=== PATIENT | male | born 1990 | race African-American/Black ===

== ENCOUNTER 2016-11-27 13:59 | Observation (INO) | payer BC ==
[~2016-11-27] VITALS: Ht 188 cm; Wt 100.0 kg
[2016-11-27 14:01] VITALS: BP 153/92; PULSE 85; RESP 17; TEMP 97.7; O2SAT 97
--- NOTE | 2016-11-27 14:22 | PD ---
Physical Exam Time Seen by Provider: 14:19 Narrative 26yo M, w/ hx of PE/DVT, c/o SOB and chest pain x 1 week w/ worsening this morning. States he has Protein S deficiency. Restarted Xarelto 3 days ago; had not taken it since April. Patient seen in triage. VS reviewed. Patient awaiting bed placement. Data Data Last Documented VS Vital Signs Date Time Temp Pulse Resp B/P Pulse Ox O2 Delivery O2 Flow Rate FiO2 11/27/16 14:01 97.7 85 17 153/92 97 Orders Electrocardiogram (11/27/16 14:20) Complete Blood Count With Diff (11/27/16 14:20) Basic Metabolic Panel (Bmp) (11/27/16 14:20) Ckmb (Isoenzyme) Profile (11/27/16 14:20) Troponin I (11/27/16 14:20) Chest, Single Ap (11/27/16 14:20) Iv Access Insert/Monitor (11/27/16 14:20) Ecg Monitoring (11/27/16 14:20) Oxygen Administration (11/27/16 14:20) Oximetry (11/27/16 14:20) D-Dimer (11/27/16 14:20) MDM Supervised Visit with ATIF: Collette Bear Nov 27, 2016 14:22
[2016-11-27 15:39] LABS: AUTOMATED NEUTROPHIL # 4.3 TH/MM3 (1.8-7.7); BASOPHIL # 0.1 TH/MM3 (0-0.2); BASOPHIL % 0.8 % (0.0-2.0); EOSINOPHIL # 0.3 TH/MM3 (0-0.4); EOSINOPHIL % 3.9 % (0.0-4.0); HEMATOCRIT 43.8 % (39.0-51.0); HEMO FLAGS DIFF FINAL; LYMPH % 25.8 % (9.0-44.0); LYMPHOCYTE # 1.9 TH/MM3 (1.0-4.8); MEAN CELL VOLUME 86.9 FL (80.0-100.0); MEAN CORPUSCULAR HEMOGLOBIN 28.4 PG (27.0-34.0); MEAN CORPUSCULAR HGB CONC 32.7 % (32.0-36.0); MONO % 11.9 % (0.0-8.0); NEUT % 57.6 % (16.0-70.0); PLATELET COUNT 153 TH/MM3 (150-450); RED BLOOD COUNT 5.05 MIL/MM3 (4.50-5.90); RED CELL DISTRIBUTION WIDTH 14.6 % (11.6-17.2); WHITE BLOOD COUNT 7.5 TH/MM3 (4.0-11.0)
[2016-11-27 15:57] LABS: ANION GAP 7 MEQ/L (5-15); BICARBONATE 30.8 MEQ/L (21.0-32.0); BLOOD UREA NITROGEN 14 MG/DL (7-18); CHLORIDE 102 MEQ/L (98-107); GLOMERULAR FILTRATION RATE 82 ML/MIN (>89); POTASSIUM 3.8 MEQ/L (3.5-5.1); SODIUM (NA) 140 MEQ/L (136-145)
--- NOTE | 2016-11-27 16:03 | RADRPT ---
EXAM DATE/TIME: 11/27/2016 15:51 [facility] COMPARISON: No previous studies available for comparison. INDICATIONS : Chest pain, short of breath. MEDICAL HISTORY : s deficiency, 2 PEs SURGICAL HISTORY : None. ENCOUNTER: Initial ACUITY: 1 week PAIN SCORE: 7/10 LOCATION: Bilateral chest FINDINGS: PA and lateral views of the chest demonstrate a normal-sized cardiac silhouette. There is no effusion , consolidation, or pneumothorax. The bones and soft tissues demonstrate no acute abnormality. CONCLUSION: Normal chest x-ray. J Luis Blunt MD on November 27, 2016 at 16:00 Board Certified Radiologist. This report was verified electronically.
[2016-11-27 16:10] LABS: CREATINE KINASE 1069 U/L (39-308)
[2016-11-27 16:23] LABS: CKMB 2.3 NG/ML (0.5-3.6)
[2016-11-27] MEDS ORDERED: XARE20TA PO (19:08)
--- NOTE | 2016-11-27 19:24 | PD ---
HPI Chief Complaint: Cardiac Complaint Time Seen by Provider: 19:19 Travel History International Travel<30 days: No Contact w/Intl Traveler<30days: No Traveled to known affect area: No History of Present Illness HPI 26-year-old male presents to the emergency department for evaluation of right- sided chest pain that started approximately one week ago. He does state it is worse with deep breathing as well as coughing and movement. Patient reports history of PE and DVT due to protein S deficiency. He states that he has been off his Xarelto since April up until 3 days ago when he resumed his Xarelto. He states that he recently got insurance and now can afford it. The patient denies any fevers or chills. No abdominal pain. No nausea, vomiting, diarrhea. He states that every time he has had a PE, he has also had a DVT. He denies any leg pain at this time. Patient denies any cardiac history. PFSH Past Medical History Hx Anticoagulant Therapy: Yes (XARELTO) Deep Vein Thrombosis: Yes (RT MID CALF/LEFT MORE TWARDS KNEE) Musculoskeletal: Yes (6 SCREWS IN ANKLE) Reproductive: Yes (PE IN ONE LUNG) Tetanus Vaccination: > 5 Years Influenza Vaccination: No ?: Not Social History Alcohol Use: Yes Tobacco Use: Yes (PIPE TOBACCO) Substance Use: No Allergies-Medications (Allergen,Severity, Reaction): Coded Allergies: No Known Allergies (Unverified , 08/21/12) Reported Meds & Prescriptions Reported Meds & Active Scripts Active Reported Xarelto (Rivaroxaban) 20 Mg Tab 20 Mg PO DAILYHS [None] Review of Systems Except as stated in HPI: all other systems reviewed are Neg Physical Exam Narrative GENERAL: Well-nourished, well-developed male patient, ambulatory. Afebrile. SKIN: Focused skin assessment warm/dry. HEAD: Normocephalic. Atraumatic. EYES: No scleral icterus. No injection or drainage. NECK: Supple, trachea midline. No JVD or lymphadenopathy. CARDIOVASCULAR: Regular rate and rhythm without murmurs, gallops, or rubs. RESPIRATORY: Breath sounds equal bilaterally. No accessory muscle use. Lungs sounds are clear to auscultation. GASTROINTESTINAL: Abdomen soft, non-tender, nondistended. MUSCULOSKELETAL: No cyanosis, or edema. BACK: Nontender without obvious deformity. No CVA tenderness. Data Data Last Documented VS Vital Signs Date Time Temp Pulse Resp B/P Pulse Ox O2 Delivery O2 Flow Rate FiO2 11/27/16 19:52 Room Air 11/27/16 14:01 97.7 85 17 153/92 97 Orders Electrocardiogram (11/27/16 14:20) Complete Blood Count With Diff (11/27/16 14:20) Basic Metabolic Panel (Bmp) (11/27/16 14:20) Ckmb (Isoenzyme) Profile (11/27/16 14:20) Troponin I (11/27/16 14:20) Iv Access Insert/Monitor (11/27/16 14:20) Ecg Monitoring (11/27/16 14:20) Oxygen Administration (11/27/16 14:20) Oximetry (11/27/16 14:20) D-Dimer (11/27/16 14:20) Chest, Pa & Lat (11/27/16 14:20) CKMB (11/27/16 15:15) CKMB% (11/27/16 15:15) Us Leg Venous Doppler Bilat (11/27/16 ) Sodium Chlor 0.9% 1000 Ml Inj (Ns 1000 M (11/27/16 19:30) Ventilation & Perfusion Scan (11/27/16 20:59) Heparin Inj (Heparin Inj) (11/27/16 22:45) Heparin Inj (Heparin Inj) (11/28/16 04:45) Heparin Inj (Heparin Inj) (11/28/16 04:45) Heparin-D5w Inj (Heparin-D5w Inj) (11/27/16 22:45) Place In Observation (11/27/16 ) Vital Signs (Adult) Q4H (11/27/16 22:38) Activity Bed Rest (11/27/16 22:38) Wheel Shop Supervisor / Telemetry .CONTINUOUS (11/27/16 22:38) Diet Heart Healthy (11/28/16 Breakfast) Sodium Chloride 0.9% Flush (Ns Flush) (11/27/16 22:45) Sodium Chloride 0.9% Flush (Ns Flush) (11/28/16 09:00) Basic Metabolic Panel (Bmp) (11/28/16 06:00) Complete Blood Count With Diff (11/28/16 06:00) Naloxone Inj (Narcan Inj) (11/27/16 22:45) Rivaroxaban (Xarelto) (11/28/16 21:00) Rivaroxaban (Xarelto) (11/27/16 22:45) Admit Order (Ed Use Only) (11/27/16 22:39) Labs Laboratory Tests Test 11/27/16 15:15 White Blood Count 7.5 TH/MM3 Red Blood Count 5.05 MIL/MM3 Hemoglobin 14.3 GM/DL Hematocrit 43.8 % Mean Corpuscular Volume 86.9 FL Mean Corpuscular Hemoglobin 28.4 PG Mean Corpuscular Hemoglobin 32.7 % Concent Red Cell Distribution Width 14.6 % Platelet Count 153 TH/MM3 Mean Platelet Volume 8.4 FL Neutrophils (%) (Auto) 57.6 % Lymphocytes (%) (Auto) 25.8 % Monocytes (%) (Auto) 11.9 % Eosinophils (%) (Auto) 3.9 % Basophils (%) (Auto) 0.8 % Neutrophils # (Auto) 4.3 TH/MM3 Lymphocytes # (Auto) 1.9 TH/MM3 Monocytes # (Auto) 0.9 TH/MM3 Eosinophils # (Auto) 0.3 TH/MM3 Basophils # (Auto) 0.1 TH/MM3 CBC Comment DIFF FINAL Differential Comment D-Dimer Quantitative (PE/DVT) 3.44 MG/L FEU Sodium Level 140 MEQ/L Potassium Level 3.8 MEQ/L Chloride Level 102 MEQ/L Carbon Dioxide Level 30.8 MEQ/L Anion Gap 7 MEQ/L Blood Urea Nitrogen 14 MG/DL Creatinine 1.28 MG/DL Estimat Glomerular Filtration 82 ML/MIN Rate Random Glucose 72 MG/DL Calcium Level 9.5 MG/DL Total Creatine Kinase 1069 U/L Creatine Kinase MB 2.3 NG/ML Creatine Kinase MB % 0.2 % Troponin I LESS THAN 0.02 NG/ML MDM Medical Decision Making Medical Screen Exam Complete: Yes Emergency Medical Condition: Yes Medical Record Reviewed: Yes Interpretation(s) Last Impressions Chest X-Ray 11/27/16 1970 Signed Impressions: Service Date/Time: Sunday, November 27, 2016 15:51 - CONCLUSION: Normal chest x-ray. J Luis Blunt MD Differential Diagnosis PE versus chest wall pain versus pneumonia versus DVT Narrative Course 26-year-old male presents to the emergency department for evaluation of right- sided chest pain for 1 week. He has history DVT and PE due to protein S deficiency. He has been off his Xarelto since April up until 3 days ago. Workup was initiated in triage. EKG shows sinus rhythm, heart rate 62. CBC shows no acute abnormality. CMP shows no acute abnormality. CK is 1069. Troponin is less than 0.02. D-dimer is elevated at 3.44. Patient is given normal saline [address] pulmonary angiogram and venous Doppler ultrasound of bilateral lower extremities is ordered and pending. Apparently the IV infiltrated during CT pulmonary angiogram. VQ scan is ordered and shows high probability of pulmonary embolism. Venous doppler US shows the study is positive for deep venous thrombosis bilateral lower extremity. I discussed this with Dr. Wallace, admitting physician, who does not want patient on a heparin drip at this time. She accepted admission. Diagnosis Primary Impression: Pulmonary embolism Qualified Code: I26.99 - Other acute pulmonary embolism without acute cor pulmonale Additional Impressions: DVT (deep venous thrombosis) Qualified Code: I82.4Z3 - Acute deep vein thrombosis (DVT) of distal vein of both lower extremities Rhabdomyolysis Qualified Code: M62.82 - Non-traumatic rhabdomyolysis Admitting Information Admitting Physician Requests: Rajwinder Ivan Nov 27, 2016 19:24
[2016-11-27] MEDS ORDERED: SODIUM CHLOR 0.9% 1000 ML INJ 1,000 ML IV ONE (19:30)
--- NOTE | 2016-11-27 21:06 | RADRPT ---
EXAM DATE/TIME: 11/27/2016 19:47 [facility] COMPARISON: No previous studies available for comparison. INDICATIONS : Bilateral leg pain. MEDICAL HISTORY : Deep vein thrombosis. Pleural effusion. SURGICAL HISTORY : None. ENCOUNTER: Initial ACUITY: 1 week PAIN SCORE: 2/10 LOCATION: Bilateral legs. TECHNIQUE: Venous ultrasound of the left and right leg was performed from the inguinal ligament to the proximal calf. Real-time, color Doppler and spectral tracing, compression and augmentation techniques were us ed. FINDINGS: RIGHT LEG: Abnormal. Echogenic thrombus is seen in the popliteal and posterior tibial veins with absent flow. No augmentation of flow in the femoral vein. Flow is seen in the right iliac vein. LEFT LEG: Abnormal. Echogenic thrombus is seen in the posterior tibial vein. There is flow seen in the poplit eal vein, but the vessels noncompressible and there is no augmentation to distal compression. No aug mentation in the femoral vein. Flow is seen in the left iliac vein. CONCLUSION: The study is positive for deep venous thrombosis bilateral lower extremity. Rian Rodriguez MD on November 27, 2016 at 21:00 Board Certified Radiologist. This report was verified electronically.
--- NOTE | 2016-11-27 22:26 | RADRPT ---
EXAM DATE/TIME: 11/27/2016 21:25 [facility] COMPARISON: CHEST PA & LAT, November 27, 2016, 15:51. US LEG BILATERAL VENOUS DOPPLER, November 27, 2016, 19:47. INDICATIONS : Dyspnea and chest pain. DOSE: 8.1 mCi Tc99m MAA IV 1.1 mCi Tc99m DTPA aerosol MEDICAL HISTORY : Deep venous thrombosis. Pulmonary embolism. SURGICAL HISTORY : None. ENCOUNTER: Initial ACUITY: 1 week PAIN SCALE: 3/10 LOCATION: chest TECHNIQUE: Following five minutes of tidal breathing of DTPA aerosol, planar images of the lungs were performed in eight projections. The patient was then injected with MAA, and eight-view perfusion scan was perf ormed. FINDINGS: There is a homogeneous pattern of aerosol delivery to the periphery of both lungs. No focal ventilat ory defects are seen. The perfusion lung scan demonstrates bilateral segmental lesions in the posterior segment of both upp er lobes seen in both lateral oblique and AP views. Chest x-ray performed today demonstrates lungs clear. CONCLUSION: High probability of pulmonary embolism. Rian Rodriguez MD on November 27, 2016 at 22:22 Board Certified Radiologist. This report was verified electronically.
[2016-11-27] MEDS ORDERED: HEPARIN-D5W INJ 250 ML IV SCH (22:45)
[2016-11-27] MEDS ORDERED: SODIUM CHLORIDE 0.9% FLUSH 10 ML FLUSH IV FLUSH PRN (22:45)
[2016-11-27] MEDS ORDERED: HEPARIN SODIUM - IV 10,000 UNITS/10 ML VIAL IV ONE (22:45)
[2016-11-27] MEDS ORDERED: RIVAROXABAN 20 MG TAB PO ONE (22:45)
[2016-11-27] MEDS ORDERED: NALOXONE HCL 0.4 MG/ML AMP IV PRN (22:45)
[2016-11-28] MEDS ORDERED: HEPARIN SODIUM - IV 10,000 UNITS/10 ML VIAL IV PRN ×2 (04:45)
[2016-11-28] MEDS ORDERED: SODIUM CHLORIDE 0.9% FLUSH 10 ML FLUSH IV FLUSH SCH (09:00)
--- NOTE | 2016-11-28 14:44 | EKG ---
Date Performed: 11/27/2016 Time Performed: 15:08:59 PTAGE: 26 years EKG: Sinus rhythm Nonspecific ST-T wave changes, likely secondary to early Repolarization. NORMAL ECG NO PREVIOUS TRACING DOCTOR: Nicole Beltran Interpretating Date/Time 11/28/2016 14:43:25
[2016-11-28] MEDS ORDERED: RIVAROXABAN 20 MG TAB PO SCH (21:00)
== END 2016-11-28 00:40 | disposition left against medical advice (07) ==
LOC: NEPC 13:59 → NEDA 22:42
PROVIDERS: ADMIT Internal Medicine; ATTEND Internal Medicine
DX: I26.99 Other pulmonary embolism without acute cor pulmonale (principal); I82.4Z3 Acute embolism and thrombosis of unspecified deep veins of distal lower extremity, bilateral; M62.82 Rhabdomyolysis; D68.59 Other primary thrombophilia; F17.290 Nicotine dependence, other tobacco product, uncomplicated; Z79.01 Long term (current) use of anticoagulants; R07.9 Chest pain, unspecified
CPT/HCPCS: 71020; 78582; 80048; 82550; 82552; 84484; 85025; 85379; 93005; 93970; 96365; 99285; A9540; A9567; G0378; J7030